=== PATIENT | female | born 1950 ===

== ENCOUNTER 2018-07-10 15:20 | Emergency (ER) | payer MEDICARE ==
[2018-07-10 15:20] VITALS: BMI 34.0
[2018-07-10 15:27] VITALS: RESP 16; TEMP 97.8; O2SAT 99
--- NOTE | 2018-07-10 15:56 | ED PDOC ---
HPI: Back Time Seen by Provider: 07/10/18 15:29 Chief Complaint (Nursing): Back Pain Chief Complaint (Provider): Back Pain History Per: Patient, Family (daughter) History/Exam Limitations: no limitations Onset/Duration Of Symptoms: Days (x2 weeks) Current Symptoms Are (Timing): Still Present Additional Complaint(s): 67 year old female presents to the ED with daughter for evaluation of lower back pain radiating into her right lower extremity for the past two weeks ever since she went to rise from a seated position on the couch. Patient reports having a history of lumbar disc herniations with neuropathy, and takes Gabapentin daily, but has not taken her dose yet today. Additionally, the last pain medicine she reports taking was Aleve last night; no medications were taken today prior to arrival. Otherwise, denies recent falls, trauma, numbness, weakness, saddle anesthesia, fever, incontinence, abdominal pain, chest pain, nausea, vomiting, diarrhea, cough, and shortness of breath. PMD: Susie Mills Past Medical History Reviewed: Historical Data, Nursing Documentation, Vital Signs Vital Signs: Last Vital Signs Temp 97.8 F 07/10/18 15:24 Pulse 80 07/10/18 15:24 Resp 16 07/10/18 15:24 BP 144/91 H 07/10/18 15:24 Pulse Ox 99 07/10/18 15:24 - Medical History PMH: Arthritis, Asthma, Bronchitis, Colonic Polyps, Diverticulitis, Fractures, HTN, Hypercholesterolemia, Peripheral Edema, Pneumonia (2009,2010) Other PMH: herniated discs - Surgical History Surgical History: Appendectomy, Endoscopy, Tonsillectomy, - Family History Family History: States: Unknown Family Hx - Living Arrangements Living Arrangements: With Family - Social History Current smoker - smoking cessation education provided: No Alcohol: None Drugs: Denies - Home Medications Home Medications: Ambulatory Orders Medication Instructions Recorded Losartan/Hydrochlorothiazide 1 tab PO DAILY 06/23/16 [Losartan-Hctz 100-25 mg Tab] RX: amLODIPine [Norvasc] 1 tab PO DAILY 06/23/16 Acetaminophen [Acetaminophen 8 650 mg PO Q8 PRN #21 tablet.er 07/10/18 Hour] Meloxicam [Mobic] 15 mg PO DAILY PRN #10 tab 07/10/18 - Allergies Allergies/Adverse Reactions: Allergies Allergy/AdvReac Type Severity Reaction Status Date / Time codeine Allergy Intermediate RASH Verified 07/10/18 15:23 Penicillins Allergy Intermediate RASH Verified 07/10/18 15:23 Review of Systems ROS Statement: Except As Marked, All Systems Reviewed And Found Negative Constitutional: Negative for: Fever Cardiovascular: Negative for: Chest Pain Respiratory: Negative for: Cough, Shortness of Breath Gastrointestinal: Negative for: Nausea, Vomiting, Abdominal Pain, Diarrhea Genitourinary Female: Negative for: Incontinence Musculoskeletal: Positive for: Back Pain (lower radiating into right lower extremity) Neurological: Negative for: Weakness, Numbness, Other (saddle anesthesia) Physical Exam - Reviewed Nursing Documentation Reviewed: Yes Vital Signs Reviewed: Yes - Physical Exam Comments: GENERAL APPEARANCE: Patient is awake, alert, oriented x 3; uncomfortable appearing. SKIN: Warm, dry; (-) cyanosis. ENMT: Mucous membranes moist. Airway patent, (-) stridor. NECK: Supple, FROM CHEST AND RESPIRATORY: (-) rales, (-) rhonchi, (-) wheezes; breath sounds equal bilaterally. Respirations even and nonlabored. HEART AND CARDIOVASCULAR: (-) irregularity ABDOMEN AND GI: Soft; (-) tenderness; (-) guarding (-) distention BACK: (+) right paralumbar tenderness, (+) right sciatic notch tenderness, (-) deformity. Straight leg raising (+) right side at 10 degrees. EXTREMITIES: (-) deformity. Distal pulses good bilaterally. NEURO AND PSYCH: Mental status as above. Intact sensation bilaterally; normal strength in extension of the knees, plantar and dorsiflexion of the toes. Gait: steady. Speech: clear. (-) facial asymmetry (-) aphasia - ECG O2 Sat by Pulse Oximetry: 99 (RA) Pulse Ox Interpretation: Normal Medical Decision Making Medical Decision Making: Initial Impression: acute on chronic back pain, sciatica Time: 1550 Initial Plan: --Toradol 15mg IM --Ultram 50mg PO ( not driving home, resides with daughter ) 1705 Repeat BP: 116/71 Repeat HR: 66 On re-evaluation, patient reports improvement of symptoms. On exam, patient remains AAOx3, in no acute distress. Rates pain currently 5/10. Gait steady in ED without assistance, neuro exam with no focal deficit. Vitals stable. Lab/Diagnostic results d/w the patient in great detail. Diagnosis of acute on chronic back pain, lumbar disc herniations, sciatica d/w the patient. Based on history, exam and diagnostic results, plan will be for outpatient follow up with PMD/ortho. Patient instructed to follow-up with pmd / referral provided / the clinic in 1- 2 days without fail. Advised to take medication as prescribed. Return to the emergency room at any time for any new or worsening symptoms. Patient states she fully agrees with and understands discharge instructions. States that she agrees with the plan and disposition. Verbalized and repeated discharge instructions and plan. I have given the patient opportunity to ask any additional questions. Scribe Attestation: Documented by Bessy Cruz, acting as a scribe for Irma aHrris PA-C. Provider Scribe Attestation: All medical record entries made by the Scribe were at my direction and personally dictated by me. I have reviewed the chart and agree that the record accurately reflects my personal performance of the history, physical exam, medical decision making, and the department course for this patient. I have also personally directed, reviewed, and agree with the discharge instructions and disposition. Disposition - Clinical Impression Clinical Impression: Chronic back pain, Lumbar disc herniation, Sciatica of right side - Patient ED Disposition Is Patient to be Admitted: No Counseled Patient/Family Regarding: Studies Performed, Diagnosis, Need For Followup, Rx Given - Disposition Referrals: Raj Bonner MD [Medical Doctor] - Susie Mills MD [Family Provider] - Disposition: Routine/Home Disposition Time: 17:05 Condition: STABLE Additional Instructions: La atencin mdica de emergencia que recibi hoy se dirigi a elisha sntomas agudos. Si le recetaron algn medicamento, llnelo y tmelo segn las indicaciones. Los sntomas pueden tardar varios gu en resolverse. Regrese al Departamento de Emergencias si elisha sntomas empeoran, no mejoran o si tiene otros problemas. Comunquese con hightower mdico dentro de 2 gu para giovanni nueva evaluacin y shaggy un seguimiento o llame a rosalie de los mdicos / clnicas a los que [place] sido referido y que figuran en el formulario de Informacin de visita al paciente que se incluye en hightower paquete de corinne. Lleve todos los documentos que le entregaron al momento del corinne junto con todos los medicamentos que est tomando para hightower visita de seguimiento. Nuestro tratamiento no puede reemplazar la atencin mdica continua por parte de un proveedor de atencin primaria (PCP) fuera del departamento de emergencias. Prescriptions: Acetaminophen [Acetaminophen 8 Hour] 650 mg PO Q8 PRN #21 tablet.er PRN Reason: Pain, Moderate (4-7) Meloxicam [Mobic] 15 mg PO DAILY PRN #10 tab PRN Reason: Pain, Moderate (4-7) Instructions: Sciatica, Low Back Pain in Adults, Herniated Disc, Back Exercises, Sciatica Exercises Forms: [facility] (Belizean) Print Language: MOHAWK - POA Present On Arrival: None
[2018-07-10 17:13] VITALS: BP 116/71; PULSE 66
== END 2018-07-10 17:16 | disposition home or self-care (01) ==
LOC: H.ER 15:20
DX: M54.41 Lumbago with sciatica, right side (principal); M54.9 Dorsalgia, unspecified; G89.29 Other chronic pain; E78.00 Pure hypercholesterolemia, unspecified; I10 Essential (primary) hypertension; Z88.0 Allergy status to penicillin
CPT/HCPCS: 96372; 99283; J1885